=== PATIENT | male | born 1970 | race Caucasian/White ===

== ENCOUNTER 2021-04-09 18:05 | Emergency (ER) | payer SELFPAY ==
[2021-04-09] MEDS ORDERED: TETANUS,DIPH,PERTUSS(ACELL) VACCINE 0.5 ML SYRINGE IM ONE (20:25)
[2021-04-09 20:28] VITALS: BP 137/92
--- NOTE | 2021-04-09 21:01 | XRay Report ---
LEFT FOREARM 3 VIEW(S) INDICATION / CLINICAL INFORMATION: can of brake fluid exploded, arm laceration COMPARISON: None available. FINDINGS: BONES / JOINT(S): No acute fracture or subluxation. No significant arthritis. SOFT TISSUES: Soft tissue wound/laceration to dorsal aspect of left mid forearm. ADDITIONAL FINDINGS: Small radiopaque metallic foreign body within the soft tissue tissues along the lateral aspect of the hand at the level of the little finger mid metacarpal shaft. Signer Name: Asim Dalton MD Signed: 04/09/2021 8:57 PM Workstation Name: [id number]
[2021-04-09] MEDS ORDERED: ACETAMINOPHEN 500 MG TAB PO ONE (21:12)
[2021-04-09] MEDS ORDERED: IBUPROFEN 600 MG TAB PO ONE (21:12)
[2021-04-09] MEDS ORDERED: LIDOCAINE (1%) 10 MG/1 ML VIAL 20 ML MDV INFILTRATI ONE (21:12)
--- NOTE | 2021-04-09 21:12 | Emergency Department Report ---
ED Upper Extremity Inj HPI - General Chief Complaint: Extremity Injury, Upper Stated Complaint: CUT ARM Time Seen by Provider: 04/09/21 20:25 Source: patient Mode of arrival: Ambulatory Limitations: Language Barrier - History of Present Illness Initial Comments: Patient is a 50-year-old male with no past medical history who presents to the ED with complaint of acute onset persistent left forearm pain with bleeding left forearm laceration after a metallic object from the break of his vehicle that he was working on broke up and hit him on the left forearm causing significant laceration on his lateral left forearm about 4 hours ago. Patient states that he is not up-to-date with tetanus vaccinations. Patient states that the bleeding is well controlled at this time. Patient denies any other injury, fall, nausea and vomiting, syncope, numbness and tingling or weakness of left forearm, change in vision, chest pain or shortness of breath. MD Complaint: Injury to:: left, forearm (bleeding left forearm laceration wound) -: Sudden, hour(s) (4) Other Extremity Injury: Forearm: Left (laceration of left forearm with pain) Other Injuries: none Place: work Severity scale (0 -10): 7 Improves With: none Worsens With: movement of extremity Context: laceration Associated Symptoms: denies other symptoms. denies: weakness, numbness, neck pain, suspects foreign body, nausea/vomiting, heard/felt popping sensat - Related Data Previous Rx's Medication Instructions Recorded Last Taken Type Ibuprofen [Motrin] 800 mg PO Q8HR PRN #30 tablet 04/09/21 Unknown Rx cephALEXin [Keflex] 500 mg PO Q8HR #30 cap 04/09/21 Unknown Rx Allergies Allergy/AdvReac Type Severity Reaction Status Date / Time No Known Allergies Allergy Unverified 04/09/21 20:28 ED Review of Systems ROS: Stated complaint: CUT ARM Other details as noted in HPI Constitutional: denies: chills, fever Eyes: denies: eye pain, eye discharge, vision change ENT: denies: ear pain, throat pain Respiratory: denies: cough, shortness of breath, wheezing Cardiovascular: denies: chest pain, palpitations Endocrine: no symptoms reported Gastrointestinal: denies: abdominal pain, nausea, diarrhea Genitourinary: denies: urgency, dysuria Musculoskeletal: arthralgia (Left forearm pain due to a bleeding laceration wound). denies: back pain, joint swelling Skin: other (Bleeding laceration wound on left lateral forearm). denies: rash, lesions Neurological: denies: headache, weakness, paresthesias Psychiatric: denies: anxiety, depression Hematological/Lymphatic: denies: easy bleeding, easy bruising ED Past Medical Hx - Medications Home Medications: Home Medications Medication Instructions Recorded Confirmed Last Taken Type Ibuprofen [Motrin] 800 mg PO Q8HR PRN #30 tablet 04/09/21 Unknown Rx cephALEXin [Keflex] 500 mg PO Q8HR #30 cap 04/09/21 Unknown Rx ED Physical Exam - General Limitations: Language Barrier General appearance: alert, in no apparent distress - Head Head exam: Present: atraumatic, normocephalic, normal inspection - Eye Eye exam: Present: normal appearance, PERRL, EOMI Pupils: Present: normal accommodation - ENT ENT exam: Present: normal exam, normal orophraynx, mucous membranes moist, TM's normal bilaterally, normal external ear exam - Neck Neck exam: Present: normal inspection, full ROM - Respiratory Respiratory exam: Present: normal lung sounds bilaterally. Absent: respiratory distress, wheezes, rales, rhonchi, chest wall tenderness, accessory muscle use, decreased breath sounds, prolonged expiratory - Cardiovascular Cardiovascular Exam: Present: regular rate, normal rhythm, normal heart sounds. Absent: systolic murmur, diastolic murmur, rubs, gallop - GI/Abdominal GI/Abdominal exam: Present: soft, normal bowel sounds. Absent: tenderness, guarding, hyperactive bowel sounds, hypoactive bowel sounds, organomegaly - Extremities Exam Extremities exam: Present: normal inspection, full ROM, tenderness (Palpable localized left forearm tenderness due to a bleeding 7 cm laceration wound), normal capillary refill. Absent: pedal edema, joint swelling, calf tenderness - Back Exam Back exam: Present: normal inspection, full ROM. Absent: tenderness, CVA tenderness (R), CVA tenderness (L), muscle spasm, paraspinal tenderness, vertebral tenderness - Neurological Exam Neurological exam: Present: alert, oriented X3, CN II-XII intact, normal gait, reflexes normal - Psychiatric Psychiatric exam: Present: normal affect, normal mood - Skin Skin exam: Present: warm, dry, normal color, other (Bleeding left lateral forearm 7 cm laceration wound with mild localized tenderness). Absent: rash ED Course Vital Signs 04/09/21 20:26 Temperature 98.5 F Pulse Rate 75 Respiratory 20 Rate Blood Pressure 137/92 O2 Sat by Pulse 99 Oximetry - Laceration /Wound Repair Left Lateral Arm Wound Location: upper extremity (Left lateral forearm laceration) Wound Length (cm): 7 Wound's Depth, Shape: superficial, irregular Wound Explored: contaminated Irrigated w/ Saline (ccs): 300 Betadine Prep?: Yes Anesthesia: 1% Lidocaine Volume Anesthetic (ccs): 8 Wound Debrided: extensive Wound Repaired With: sutures Suture Size/Type: 3:0, proline Number of Sutures: 15 Layer Closure?: No Sterile Dressing Applied?: Yes Progress: Left forearm laceration wound was cleaned extensively with normal saline and Betadine solutions. The wound was then anesthetized with a local anesthesia, lidocaine 1% solution, a total of 8 cc was used. When the local anesthesia was fully achieved, the left forearm bleeding laceration wound was sutured per protocol with Prolene 3-0 sutures. A total of 15 stitches were used. Patient tolerated the procedure well. The wound was then cleaned and dressed appropriately with 4 x 4 gauzes and Kerlix. On reevaluation, patient is neurovascularly intact and patient is able to perform active range of motion with his distal fingers with no visible weakness. Patient was therefore discharged home on pain medications and prophylactic antibiotics and was advised to return to the emergency department immediately if symptoms get worse, otherwise follow-up with his primary care physician in 7 to 10 days for reevaluation. Patient was also advised to either return to the ED or to his primary care physician in 12 to 14 days for suture removal. ED Medical Decision Making - Radiology Data Radiology results: report reviewed, image reviewed [address] [address] XRay Report Signed Patient: KHADIJAH NAVARRETE MR#: [id number] : 1970 Acct:[id number] Age/Sex: 50 / M ADM Date: 04/09/21 Loc: ED Attending Dr: Ordering Physician: ERNESTINE MARTIN Date of Service: 04/09/21 Procedure(s): XR forearm LT Accession Number(s): [id number] cc: ERNESTINE MARTIN Fluoro Time In Minutes: LEFT FOREARM 3 VIEW(S) INDICATION / CLINICAL INFORMATION: can of brake fluid exploded, arm laceration COMPARISON: None available. FINDINGS: BONES / JOINT(S): No acute fracture or subluxation. No significant arthritis. SOFT TISSUES: Soft tissue wound/laceration to dorsal aspect of left mid forearm. ADDITIONAL FINDINGS: Small radiopaque metallic foreign body within the soft tissue tissues along the lateral aspect of the hand at the level of the little finger mid metacarpal shaft. Signer Name: Asim Dalton MD Signed: 04/09/2021 8:57 PM Workstation Name: [id number] Transcribed By: TL Dictated By: Asim Dalton MD Electronically Authenticated By: Asim Dalton MD Signed Date/Time: 04/09/212056 DD/ 55 TD/TT: - Medical Decision Making This is a 50-year-old male with no past medical history who presents to the ED with complaint of acute onset persistent left forearm pain with bleeding left forearm laceration after a metallic object from the break of his vehicle that he was working on broke up and hit him on the left forearm causing significant laceration on his lateral left forearm about 4 hours ago. Patient states that he is not up-to-date with tetanus vaccinations. Patient states that the bleeding is well controlled at this time. In the ED, patient is alert and oriented x3 and is not in any distress. Patient is hemodynamically stable. Patient was treated for pain and also given booster tetanus vaccination. The left forearm x-ray showed no acute left forearm fractures or subluxations or any foreign bodies within the tissues of the left forearm within the left forearm laceration wound. The foreign body observed in the left lateral hand was an artifact as the patient had no puncture wound or any pain or discomfort in the area. The left forearm laceration wound was cleaned extensively with normal saline and Betadine solutions. The wound was then anesthetized with a local anesthesia, lidocaine 1% solution, a total of 8 cc was used. When the local anesthesia was fully achieved, the left forearm bleeding laceration wound was sutured per protocol with Prolene 3-0 sutures. A total of 15 stitches were used. Patient tolerated the procedure well. The wound was then cleaned and dressed appropriately with 4 x 4 gauzes and Kerlix. On reevaluation, patient is neurovascularly intact and patient is able to perform active range of motion with his distal fingers with no visible weakness. Patient was therefore discharged home on pain medications and prophylactic antibiotics and was advised to return to the emergency department immediately if symptoms get worse, otherwise follow-up with his primary care physician in 7 to 10 days for reevaluation. Patient was also advised to either return to the ED or to his primary care physician in 12 to 14 days for suture removal. - Differential Diagnosis forearm laceration; Puncture wound; Forearm fracture; Arm contusion Critical care attestation.: If time is entered above; I have spent that time in minutes in the direct care of this critically ill patient, excluding procedure time. ED Disposition Clinical Impression: Laceration of left forearm without foreign body Qualifiers: Encounter type: initial encounter Qualified Code(s): S51.812A - Laceration without foreign body of left forearm, initial encounter Injury of left forearm Qualifiers: Encounter type: initial encounter Qualified Code(s): S59.912A - Unspecified injury of left forearm, initial encounter Disposition: 01 HOME / SELF CARE / HOMELESS Is pt being admited?: No Does the pt Need Aspirin: No Condition: Stable Instructions: Laceration Care, Adult, [id number], Sutured Wound Care, [id number] Additional Instructions: La radiografa de antebrazo crow no mostr fracturas agudas ni subluxaciones ni presencia de cuerpos extraos en los tejidos blandos del antebrazo crow. Por lo tanto, tome la medicacin con alimentos, mari muchos lquidos y mellisa un seguimiento con luque mdico de atencin primaria en 7 a 10 mcarthur para ata reevaluacin. Regrese al servicio de urgencias de inmediato si los sntomas empeoran. De lo contrario, regrese al servicio de urgencias en 12 a 14 mcarthur para retirar la sutura. Prescriptions: cephALEXin [Keflex] 500 mg PO Q8HR #30 cap Ibuprofen [Motrin] 800 mg PO Q8HR PRN #30 tablet PRN Reason: Pain , Severe (7-10) Referrals: [facility] [Provider Group] - 7-10 days Time of Disposition: 21:39 Print Language: LATVIAN
== END 2021-04-09 22:40 | disposition home or self-care (01) ==
LOC: ED 18:05
DX: S51.812A Laceration without foreign body of left forearm, initial encounter (principal); Z79.899 Other long term (current) drug therapy; W25.XXXA Contact with sharp glass, initial encounter; Y93.89 Activity, other specified; Y92.89 Other specified places as the place of occurrence of the external cause; Y99.0 Civilian activity done for income or pay
CPT/HCPCS: 90471; 90715